=== PATIENT | male | born 1990 | race Hispanic/Latino ===

== ENCOUNTER 2025-07-12 09:01 | Emergency (ER) | payer OTHER ==
[2025-07-12] MEDS ORDERED: Nitroglycerin 0.4 MG TAB 1 EACH ONE (09:17)
[2025-07-12 09:45] LABS: #Basophils 0.1 thou/uL (0.0-0.2); #Eosinophils 0.1 thou/uL (0.0-0.7); #Lymphocytes 2.4 thou/uL (1.20-3.40); #Monocytes 0.9 thou/uL (0.11-0.59); #Neutrophils 6.6 thou/uL (1.40-6.50); %Basophils 1.3 % (0.0-1.0); %Eosinophils 1.0 % (0.0-10.0); %Lymphocytes 23.6 % (21.0-51.0); %Monocytes 8.7 % (0.0-10.0); %Neutrophils 65.5 % (42.0-75.0); Hematocrit 43.4 % (42.0-52.0); Hemoglobin 14.9 g/dL (14.0-18.0); Mean Corpuscular Hemoglobin 30.6 pg (27.0-31.0); Mean Corpuscular Volume 89.1 fl (78.0-98.0); Platelet Count 321 10x3/uL (130-400); Red Blood Cell (RBC) Count 4.87 mill/uL (4.70-6.10); White Blood Cell (WBC) Count 10.1 10x3/uL (4.8-10.8)
[2025-07-12] MEDS ORDERED: Ondansetron PF 4 MG/2 ML Vial ONE (09:45)
[2025-07-12] MEDS ORDERED: Ketorolac Tromethamine 30 MG (1 mL) VIAL ONE (09:45)
[2025-07-12 10:00] LABS: ALT (SGPT) 83 U/L (Less than 45); AST (SGOT) 33 U/L (11-34); Albumin 4.4 g/dL (3.1-4.5); Alkaline Phosphatase 77 U/L (40-110); Anion Gap 15 mmol/L (10-20); BUN (Urea Nitrogen) 11 mg/dL (8.9-20.6); Bilirubin, Total 0.9 mg/dL (0.3-1.2); CK (CPK) 116 U/L (30-200); Calc. Creatinine Clearance 0 mL/min (70-130); Calcium 9.0 mg/dL (7.8-10.44); Carbon Dioxide 24 mmol/L (22-29); Chloride 106 mmol/L (98-107); Globulin 2.6 g/dL (2.4-3.5); Glucose 108 mg/dL (70-105); Lipase 14 U/L (8-78); Potassium 3.6 mmol/L (3.5-5.1); Sodium 141 mmol/L (136-145)
[2025-07-12 10:06] LABS: MDiff Complete? YES; Troponin I Less than 0.010 ng/mL (< 0.028)
[2025-07-12 10:08] LABS: Platelet Adequacy Comment Appears Adequate
[2025-07-12 10:43] LABS: Glucose, Urine (Dipstick) Negative (Negative); Leukocyte Negative (Negative); Protein, Urine (Dipstick) Negative (Neg-Trace); Specific Gravity, Urine Greater/Equal 1.030 (1.005-1.030)
[2025-07-12 10:47] LABS: Bacteria/HPF Rare-Few HPF (None Seen); CAUTI Indications for Culture Pelvic or flank pain; Mucous/LPF 2+ LPF (<2+); RBC/HPF None Seen HPF (0-3); Urine Culture Reflex No No
[2025-07-12 11:00] LABS: Cocaine Metabolite Screen Negative (Negative); THC/Cannabinoid Screen PRELIM POSITIVE (Negative); Tricyclic Screen Negative (Negative)
== END 2025-07-12 11:17 ==
LOC: EEVIPCON 09:01 → MADERS 09:01
DX: R07.81 Pleurodynia (principal)
CPT/HCPCS: 71045; 80053; 80306; 81001; 82550; 83690; 84443; 84484; 85025; 93005; 94760; 96374; 96375; J1885; J2405